=== PATIENT | female | born 1975 | race Caucasian/White ===

== ENCOUNTER 2018-07-02 22:47 | Emergency (ER) | payer MEDICAID | END 2018-07-03 00:59 | disposition home or self-care (01) | LOC: FTE 22:47 | DX: L03.011 Cellulitis of right finger (principal) | CPT/HCPCS: 99283; Z7502 ==

== ENCOUNTER 2018-09-17 20:24 | Emergency (ER) | payer MEDICAID | END 2018-09-17 21:49 | disposition home or self-care (01) | LOC: FTE 21:49 | DX: L03.011 Cellulitis of right finger (principal) | CPT/HCPCS: 99283 ==